=== PATIENT | female | born 1935 | race Caucasian/White ===

== ENCOUNTER 2025-06-18 12:35 | Emergency (ER) | payer MEDICARE ==
[~2025-06-18 12:35] MED LIST: Iopamidol 370 76% 100 ML VIAL ONE
[2025-06-18] MEDS ORDERED: Boostrix 0.5 ML (Tdap) VIAL (>/=7 yrs of age) ONE (13:17)
[2025-06-18 13:35] LABS: ALT (SGPT) 10 U/L (Less than 34); AST (SGOT) 24 U/L (11-34); Albumin 3.5 g/dL (3.1-4.5); Alkaline Phosphatase 72 U/L (40-110); Anion Gap 17 mmol/L (10-20); BUN (Urea Nitrogen) 13 mg/dL (9.8-20.1); Bilirubin, Total 1.0 mg/dL (0.3-1.2); CK (CPK) 82 U/L (29-168); Calc. Creatinine Clearance 0 mL/min (70-130); Calcium 9.1 mg/dL (7.8-10.44); Carbon Dioxide 19 mmol/L (23-31); Chloride 103 mmol/L (98-107); Globulin 2.9 g/dL (2.4-3.5); Glucose 121 mg/dL (83-110); Potassium 4.1 mmol/L (3.5-5.1); Sodium 135 mmol/L (136-145)
[2025-06-18 13:41] LABS: #Basophils 0.0 thou/uL (0.0-0.2); #Eosinophils 0.0 thou/uL (0.0-0.7); #Lymphocytes 0.3 thou/uL (1.20-3.40); #Monocytes 0.2 thou/uL (0.11-0.59); #Neutrophils 4.3 thou/uL (1.40-6.50); %Basophils 0.5 % (0.0-1.0); %Eosinophils 0.0 % (0.0-10.0); %Lymphocytes 5.2 % (21.0-51.0); %Monocytes 3.4 % (0.0-10.0); %Neutrophils 90.9 % (42.0-75.0); Hematocrit 27.5 % (36.0-47.0); Hemoglobin 10.0 g/dL (12.0-16.0); MDiff Complete? YES; Mean Corpuscular Hemoglobin 37.9 pg (27.0-31.0); Mean Corpuscular Volume 104.0 fl (78.0-98.0); Platelet Count 175 10x3/uL (130-400); Red Blood Cell (RBC) Count 2.64 mill/uL (4.20-5.40); White Blood Cell (WBC) Count 4.8 10x3/uL (4.8-10.8)
[2025-06-18] MEDS ORDERED: Triple Antibiotic Oint 1 GM Packet ONE (14:30)
== END 2025-06-18 14:49 | disposition home or self-care (01) ==
LOC: BURERS 12:35
DX: S51.811A Laceration without foreign body of right forearm, initial encounter (principal); S51.812A Laceration without foreign body of left forearm, initial encounter; S20.211A Contusion of right front wall of thorax, initial encounter; S00.83XA Contusion of other part of head, initial encounter; W01.198A Fall on same level from slipping, tripping and stumbling with subsequent striking against other object, initial encounter; Z23 Encounter for immunization
CPT/HCPCS: 70450; 70486; 71260; 72125; 80053; 82550; 85025; 90471; 90715; Q9967